=== PATIENT | male | born 1975 | race Caucasian/White ===

== ENCOUNTER 2017-04-14 21:38 | Emergency (ER) | payer SELFPAY ==
[2017-04-14 21:44] VITALS: BP 144/92; PULSE 100; TEMP 97; BMI 24.4
--- NOTE | 2017-04-14 22:19 | PDOC ---
History of Present Illness - General Chief Complaint: Injury Stated Complaint: RH 4TH FINGER INJURY Time Seen by Provider: 04/14/17 21:44 - History of Present Illness Initial Comments: This otherwise healthy 41-year-old man presents with an injury to the right fourth finger. Just prior to presentation, Patient was working with wood pieces when 2 of these pieces compressed the distal part of his right fourth finger. No other injury sustained. No skin injury/bleeding occurred. Patient reports pain, especially in the palmar aspect of the distal phalanx. He otherwise can move the finger normally. No previous history of right fourth finger injury. Past History - Past Medical History Allergies/Adverse Reactions: Allergies Allergy/AdvReac Type Severity Reaction Status Date / Time No Known Drug Allergies Allergy Verified 06/03/15 11:07 Home Medications: Ambulatory Orders Ibuprofen [Motrin -] 600 mg PO TID PRN #21 tablet 04/14/17 Anemia: No Asthma: No Cancer: No Cardiac Disorders: No CVA: No COPD: No CHF: No Dementia: No Diabetes: No GI Disorders: No Disorders: No HTN: No Hypercholesterolemia: No Liver Disease: No Seizures: No Thyroid Disease: No - Suicide/Smoking/Psychosocial Hx Smoking History: Never smoked Have you smoked in the past 12 months: No Hx Alcohol Use: Yes (SOCIAL) Drug/Substance Use Hx: No Substance Use Type: Alcohol Hx Substance Use Treatment: No Review of Systems - Review of Systems Able to Perform ROS?: Yes Comments:: 12 point review of systems is negative except for what is noted in the history of present illness *Physical Exam - Vital Signs Last Vital Signs Temp Pulse Resp BP Pulse Ox 97 F L 100 H 16 144/92 100 04/14/17 21:42 04/14/17 21:42 04/14/17 21:42 04/14/17 21:42 04/14/17 21:42 - Physical Exam Comments: GENERAL: Adult male, alert and oriented 3, in no acute distress HEAD: Normal with no signs of trauma. EXTREMITIES: Right fourth finger-moderate erythema/edema of the palmar aspect of the distal phalanx Point tenderness without deformity mid palmar aspect distal phalanx No subungual hematoma Remainder of the fourth finger is nontender/nonedematous with full range of motion Remainder of the extremity exam is normal NEUROLOGICAL: Cranial nerves II through XII grossly intact. Normal speech. No focal neurological deficits. MUSCULOSKELETAL: Back non-tender to palpation, no CVA tenderness SKIN: Warm, Dry, normal turgor, no rashes or lesions noted. ED Treatment Course - RADIOLOGY Radiology Studies Ordered: Category Date Time Status FINGER(S) RIGHT [RAD] Stat Radiology 04/14/17 21:40 Taken Progress Note - Progress Note Progress Note: Preliminary results of the right fourth finger x-ray shows nondisplaced, linear , horizontal fracture of the mid distal phalanx, no other acute process identified in the digit. Results discussed with the patient and his parents. Splint applied to the finger. Patient is already followed by the [facility] for orthopedic care. Patient should follow-up with Dr. Vergara within the next week. Meanwhile, splint should be kept in place. 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 *DC/Admit/Observation/Transfer Diagnosis at time of Disposition: Fracture of finger of right hand Qualifiers: Encounter type: initial encounter Finger: ring finger Fracture type: closed Phalanx: distal Fracture alignment: nondisplaced Qualified Code(s): S62.664A - Nondisplaced fracture of distal phalanx of right ring finger, initial encounter for closed fracture - Discharge Dispostion Disposition: HOME Condition at time of disposition: Stable - Prescriptions Prescriptions: Ibuprofen [Motrin -] 600 mg PO TID PRN #21 tablet PRN Reason: Moderate Pain - Referrals Referrals: Cleveland Castillo MD [Primary Care Provider] - Marcin Vergara MD [Staff Physician] - 1 week - Patient Instructions Printed Discharge Instructions: Finger Fracture Additional Instructions: Elevate right hand as much as possible over the next few days Ice to area of swelling/bruising over the next 2 days Keep splint in place until seen by Dr. Vergara/ Motrin 600 mg up to 3 times a day as needed (take with food) - Post Discharge Activity
[2017-04-14] MEDS ORDERED: IBUPROFEN 600 MG TABLET (FP) PO ONE ×2 (22:24→22:25)
== END 2017-04-14 22:32 | disposition home or self-care (01) ==
LOC: FER 21:38
PROC: 2W3JX1Z Immobilization of Right Finger using Splint (ICD-10-PCS; principal; 2017-04-14)
DX: S62.664A Nondisplaced fracture of distal phalanx of right ring finger, initial encounter for closed fracture (principal); W23.0XXA Caught, crushed, jammed, or pinched between moving objects, initial encounter; Y93.89 Activity, other specified; Y92.9 Unspecified place or not applicable
CPT/HCPCS: 73140-TC-RT; 99282-25

== ENCOUNTER 2017-08-24 04:56 | Day surgery (SDC) | payer BC ==
[2017-08-13 08:15] VITALS: BMI 25.3
[2017-08-24] MEDS ORDERED: BUPIVACAINE HCL/PF 0.5% (5MG/ML) 10 ML VIAL ONE (07:16)
[2017-08-24] MEDS ORDERED: LIDOCAINE 1%/EPI 1:100000 (20 ML MULTI DOSE VIAL) ONE (07:16)
[2017-08-24] MEDS ORDERED: ACETAMINOPHEN INJECTION 100 ML IVPB ONE (07:24)
[2017-08-24] MEDS ORDERED: LIDOCAINE HCL/PF 2% SDV 5ML VIAL ONE (07:29)
[2017-08-24] MEDS ORDERED: SUCCINYLCHOLINE CHLORIDE 200 MG/10 ML VIAL ONE (07:30)
[2017-08-24] MEDS ORDERED: MIDAZOLAM HCL 2 MG/2 ML SINGLE DOSE VIAL ONE ×2 (07:30)
[2017-08-24] MEDS ORDERED: PROPOFOL 20 ML ONE ×2 (07:30)
[2017-08-24] MEDS ORDERED: DESFLURANE GAS 240 ML BOTTLE IH ONE (07:34)
[2017-08-24] MEDS ORDERED: ceFAZolin SODIUM 1 GM VIAL ONE (07:34)
--- NOTE | 2017-08-24 07:54 | HP ---
[facility] - Chief Complaint Chief Complaint: LEFT KNEE PAIN History Source: Patient - Past Medical History Allergies/Adverse Reactions: Allergies Allergy/AdvReac Type Severity Reaction Status Date / Time No Known Drug Allergies Allergy Verified 08/24/17 06:37 - Current Medications Current Medications: Home Medications Medication Instructions Recorded NK [No Known Home Medication] 08/13/17 Satellite Physical Exam - Physical Examination Vital Signs: Vital Signs Period Temp Pulse Resp BP Sys/Rutledge Pulse Ox Last 24 Hr 97.9 F 75 20 114/59 100 Extremities: Other (+ JOINT LINE TENDERNESS) Satellite Impression/Plan - Impression/Plan Impression: INTERNAL DERANGEMENT LEFT KNEE Operative Procedure: ARTHROSCOPY LEFT KNEE Date to be Performed: 08/24/17
[2017-08-24] MEDS ORDERED: BUPIVACAINE HCL/PF 0.5% (5MG/ML) 10 ML VIAL IJ ONE (08:11)
[2017-08-24] MEDS ORDERED: LIDOCAINE 1%/EPI 1:100000 (20 ML MULTI DOSE VIAL) IJ ONE (08:11)
--- NOTE | 2017-08-24 08:40 | OP ---
Operative Note - Note: Operative Date: 08/24/17 Pre-Operative Diagnosis: internal derangement left knee Operation: arthroscopy left knee with partial MM and chondroplasty Post-Operative Diagnosis: Same as Pre-op Surgeon: Joe Cortés Anesthesia: General Operative Report Dictated: Yes
--- NOTE | 2017-08-24 09:12 | OP ---
DATE OF OPERATION: 08/24/2017 PREOPERATIVE DIAGNOSIS: Internal derangement, left knee. POSTOPERATIVE DIAGNOSIS: Internal derangement, left knee. PROCEDURE: Arthroscopy, left knee. Partial medial meniscectomy and chondroplasty of the trochlea. SURGICAL ATTENDING: Joe Cortés MD ANESTHESIA: LMA. CLOSURE: 4-0 nylon. COMPLICATIONS: None. CONDITION: To recovery room in stable condition. DESCRIPTION OF THE OPERATION: Patient taken to the operating room on August 24, 2017. General anesthesia with LMA was administered by the anesthesiologist. The left lower extremity was prepped and draped in the usual sterile fashion. The medial and lateral infrapatellar portal sites were infiltrated with 1% Xylocaine with epinephrine. Each portal was then made with a 15-blade followed by blunt trocar. The scope trocar was placed up into the suprapatellar pouch, and the knee was inflated with a cocktail of 10 mL of 1% Xylocaine, 10 mL of 0.5% Marcaine, and 20 mL of arthroscopic saline. After allowing the anesthetic to work in the knee, the procedure was performed. The medial and lateral gutters were visualized to be clean. The undersurface of the patella was found to be intact. The trochlea had a central nickel-sized lesion with some loose cartilage. This was debrided using the shaver down to a stable articular cartilage. With valgus stress on the knee, the medial compartment was entered. Medial meniscus was visualized, probed, found to have a complex tear and a flap tear of its posterior horn. This was debrided back to smooth, stable meniscal tissue using meniscal biter and arthroscopic shaver. Medial femoral condyle was run and found to be intact, as well as medial tibial plateau. At 90 degrees the ACL was visualized, probed, found to be intact. In a figure of 4 position the lateral compartment was entered, lateral meniscus visualized, probed, found to be intact. Lateral femoral condyle was run and found to be intact, as well as the lateral tibial plateau. Knee was irrigated with copious amount of irrigation. The portals were closed using 4-0 nylon. Prior to closure, 20 mL of 0.5% Marcaine was infused in through the trocar for postoperative analgesia. Sterile pressure dressing was placed over the knee. Patient awakened from anesthesia and transferred to recovery room in stable condition. No complications. Estimated blood loss negligible. JOE CORTÉS M.D. [id number]
[2017-08-24 09:40] VITALS: TEMP 98
[2017-08-24 13:07] VITALS: BP 114/68; PULSE 59
--- NOTE | 2017-08-27 14:05 | PATH ---
Surgical Pathology Report Patient Name: YEISON DABRY Med. Rec. #: [id number] /Age/Gender: 1975 (Age: 41) / M Account: [id number] [facility] Taken: 08/24/2017 Received: 08/24/2017 Reported: 08/27/2017 Physicians: Joe Cortés M.D. Specimen(s) Received LEFT KNEE SHAVINGS Clinical History Internal derangement left knee Final Diagnosis KNEE, LEFT, ARTHROSCOPIC SHAVING: FIBROCARTILAGE WITH MYXOID DEGENERATIVE CHANGES, ALONG WITH PORTIONS OF SYNOVIUM AND HYALINE CARTILAGE. Electronically Signed Artemio Velazquez M.D. Gross Description Received in formalin labeled "left knee shavings" are multiple fragments of white-limon soft tissue measuring 1 x 1 x 0.2 cm in aggregate. The entire specimen submitted in one cassette. ABRAHAM/08/24/2017 denise/08/24/2017
== END 2017-08-24 11:50 | disposition home or self-care (01) ==
LOC: JASU-SURG 04:56
PROVIDERS: ATTEND Orthopaedic Surgery
PROC: 0SBD4ZZ Excision of Left Knee Joint, Percutaneous Endoscopic Approach (ICD-10-PCS; principal; 2017-08-24 08:00)
DX: M23.304 Other meniscus derangements, unspecified medial meniscus, left knee (principal)
CPT/HCPCS: 88304-TC; 94760; J0131